=== PATIENT | female | born 1975 | race Caucasian/White ===

== ENCOUNTER 2016-11-03 20:01 | Emergency (ER) ==
[2016-11-03] MEDS ORDERED: ZOFRAN 4 MG/2 ML IVP STA (20:10)
[2016-11-03] MEDS ORDERED: SODIUM CHLORIDE 1,000 ML IV STA (20:10)
[2016-11-03 20:14] VITALS: BP 130/97; TEMP 98.3; BMI 34.7
[2016-11-03 20:21] LABS: BASOPHILS # (AUTO) 0.1 K/uL (0-0.2); BASOPHILS % (AUTO) 0.7 % (0.0-3.0); EOSINOPHILS # (AUTO) 0.3 K/ul (0.0-0.7); EOSINOPHILS % (AUTO) 3.4 % (0.0-7.0); HEMATOCRIT 45.1 % (37.0-47.0); HEMOGLOBIN 16.1 g/dl (12.0-16.0); IMMATURE GRANULOCYTE % (AUTO) 0.1 % (0.0-5.0); LYMPHOCYTES # (AUTO) 2.6 K/uL (0.60-3.4); LYMPHOCYTES % (AUTO) 34.7 (10.0-50.0); MEAN CORPUSCULAR HEMOGLOBIN 34.3 pg (27.0-31.0); MEAN CORPUSCULAR HGB CONC 35.7 (31.8-35.4); MEAN CORPUSCULAR VOLUME 96.2 fl (81.0-99.0); MONOCYTES # (AUTO) 0.6 K/uL (0.4-2.0); MONOCYTES % (AUTO) 8.4 (0-10); NEUTROPHILS # (AUTO) 3.9 K/ul (2.0-6.9); NEUTROPHILS % (AUTO) 52.7; PLATELET COUNT 295 10^3/uL (140-440); RED BLOOD COUNT 4.69 10^6/ul (4.20-5.40); WHITE BLOOD COUNT 7.41 K/ul (4.6-10.2)
[2016-11-03] MEDS ORDERED: SODIUM CHLORIDE 500 ML IV STA (20:29)
[2016-11-03 20:37] LABS: FLU INTERNAL QC INTERNAL QC VALID; RAPID FLU A NEGATIVE (NEGATIVE); RAPID FLU B NEGATIVE (NEGATIVE); SERUM PREGNANCY INTERNAL QC INTERNAL QC VALID
[2016-11-03 20:57] LABS: ALANINE AMINOTRANSFERASE 17 U/L (12-78); ALBUMIN 4.1 g/dL (3.4-5.0); ALBUMIN/GLOBULIN RATIO 1.24; ALKALINE PHOSPHATASE 101 U/L (42-98); AMYLASE 43 U/L (25-115); ANION GAP 11.8; ASPARTATE AMINO TRANSFERASE 16 U/L (15-37); BILIRUBIN,TOTAL 0.34 mg/dL (0.00-1.20); BLOOD UREA NITROGEN 10 mg/dL (7-18); BUN/CREATININE RATIO 12.65; CALCIUM 9.4 mg/dL (8.2-10.2); CARBON DIOXIDE 25 mmol/L (21-32); CHLORIDE 105 mmol/L (98-107); CREATINE KINASE 120 U/L; CREATININE 0.79 mg/dL (0.60-1.30); GLUCOSE 114 mg/dL (70-110); LIPASE 64 U/L (8-78); POTASSIUM 3.8 mmol/L (3.5-5.10); SODIUM 138 mmol/L (136-145); TOTAL PROTEIN 7.4 g/dL (6.4-8.2)
[2016-11-03 21:04] LABS: BILIRUBIN,URINE Negative (NEGATIVE); KETONES,URINE Negative (NEGATIVE); LEUKOCYTE ESTERASE ,URINE Negative (NEGATIVE); NITRITE,URINE Negative (NEGATIVE); PH,URINE 6.5 (5-9); PROTEIN,URINE Negative (NEGATIVE); URINE, BLOOD Negative (NEGATIVE)
[2016-11-03 21:05] LABS: ADD URINE MICROSCOPIC NO
--- NOTE | 2016-11-03 21:19 | CT ---
Exam: CT exam of the abdomen and pelvis without intravenous contrast. Comparison: 02/27/2016. Reason for exam: Vomiting and diarrhea. FINDINGS: Image interpretation is limited by the lack of intravenous contrast administration. Mild atelectasis is seen within the partially imaged lung bases without focal consolidation or pleur al effusion. The gallbladder is been removed. No obvious intrahepatic ductal dilatation. The spleen and pancrea s are grossly unremarkable. There is similar appearing bilateral adrenal gland adenomas. No hydronephrosis, hydroureter, or nephrolithiasis is seen in either kidney. There is no focal small bowel dilatation or transition point. The appendix is unremarkable. No inflammatory changes are seen within the abdominal or pelvic fat. There is a small only fat containing periumbilical hernia. No intra-abdominal free air. No osteoblastic or osteolytic lesions. Impression: 1. No acute inflammatory findings are seen within the abdomen or pelvis. 2. Similar appearing bilateral adrenal adenomas. 3. Mild basilar atelectasis. Report faxed at [phone] hours on 11/03/2016
--- NOTE | 2016-11-03 21:51 | ED.PDOC ---
General ED Provider: Dr. KELLEE SUAREZ-ER Chief Complaint: Nausea/Vomiting Stated Complaint: im thrwing up and having diarrhea Time Seen by Physician: 21:49 Mode of Arrival: Walk-In Information Source: Patient Exam Limitations: No limitations Primary Care Provider: SUPA SANTOS Nursing and Triage Documentation Reviewed and Agree: Yes GI Complaint Exam - Vomiting/Diarrhea Complaint/Exam Onset/Duration: 24hrsw Symptoms Are: Still present Initial Severity: Mild Current Severity: Mild Character of Vomiting: Reports: Non-bilious Character of Diarrhea: Reports: Watery Aggravating: Reports: None Alleviating: Reports: None Associated Signs and Symptoms: Denies: Dizziness, Light-headedness, Melena, Hematemesis, Fever, Abdominal pain, Cramping Recent Positive Test: No Use of Oral Contraceptives: No Use of Depoprovera: No Compliant With Contraceptive Use: No Non-GI Risk Factors: Reports: None Related Surgical History: Reports: None Abdominal Findings: Present: None Kussmaul Respirations Present: No Differential Diagnoses: Dehydration, Viral Gastroenteritis, UTI Review of Systems - Review Of Systems Constitutional: Reports: No symptoms Eyes: Reports: No symptoms Ears, Nose, Mouth, Throat: Reports: No symptoms Respiratory: Reports: No symptoms Cardiac: Reports: No symptoms GI: Reports: Diarrhea, Nausea, Vomiting : Reports: No symptoms Musculoskeletal: Reports: No symptoms Skin: Reports: No symptoms Neurological: Reports: No symptoms Endocrine: Reports: No symptoms Hematologic/Lymphatic: Reports: No symptoms All Other Systems: Reviewed and Negative Past Medical History - Past Medical History Previously Healthy: Yes Endocrine: Reports: None Cardiovascular: Reports: None Respiratory: Reports: None Hematological: Reports: None Gastrointestinal: Reports: PUD, GERD, Pancreatitis Genitourinary: Reports: None Neuro/Psych: Reports: None, Migraine Musculoskeletal: Reports: None Cancer: Reports: None Last Menstrual Period: last month - Surgical History General Surgical History: Reports: Tubal ligation - Family History Family History: Reports: Unknown - Social History Smoking Status: Current every day smoker, Heavy tobacco smoker Hx Substance Use: No Alcohol Screening: None Lives: With family Physical Exam - Physical Exam Appearance: Well-appearing, No pain distress, Well-nourished Eyes: GLENN, EOMI, Conjunctiva clear ENT: Ears normal, Nose normal, Oropharynx normal Neck: Supple Respiratory: Airway patent, Breath sounds clear, Breath sounds equal, Respirations nonlabored Cardiovascular: RRR, Pulses normal, No rub, No murmur GI/: Soft, Nontender, No masses, Bowel sounds normal, No Organomegaly Musculoskeletal: Normal strength, ROM intact, No edema, No calf tenderness Skin: Warm, Dry, Normal color Neurological: Sensation intact, Motor intact, Reflexes intact, Cranial nerves intact, Alert, Oriented Psychiatric: Affect appropriate Interpretation - Radiology Interpretation Radiology Interpretation By: Radiologist Radiology Results: Negative Exam Interpreted: CT Scan - EKG Interpretation Time of EKG #1: 21:51 Rate: Normal Rhythm: Sinus Ectopy: None [place]: NL ST Segment: Normal Interpretation: nsr Critical Care Note - Critical Care Note Total Time (mins): 0 Course - Course Hematology/Chemistry: 11/03/16 20:15 11/03/16 20:15 Orders, Labs, Meds: Lab Review 11/03/16 11/03/16 20:15 20:50 WBC 7.41 RBC 4.69 Hgb 16.1 H Hct 45.1 MCV 96.2 MCH 34.3 H MCHC 35.7 H RDW Coeff of Cleopatra 13.2 Plt Count 295 Immature Gran % (Auto) 0.1 Neut % (Auto) 52.7 Lymph % (Auto) 34.7 Whitfield % (Auto) 8.4 Eos % (Auto) 3.4 Baso % (Auto) 0.7 Immature Gran # (Auto) 0.0 Neut # 3.9 Lymph # 2.6 Whitfield # 0.6 Eos # 0.3 Baso # 0.1 Sodium 138 Potassium 3.8 Chloride 105 Carbon Dioxide 25 Anion Gap 11.8 BUN 10 Creatinine 0.79 Estimated GFR (MDRD) 81.00 BUN/Creatinine Ratio 12.65 Glucose 114 H Calcium 9.4 Total Bilirubin 0.34 AST 16 ALT 17 Alkaline Phosphatase 101 H Total Creatine Kinase 120 CK-MB (CK-2) 2.0 CK-MB (CK-2) % 1.28824 Troponin I < 0.0100 Total Protein 7.4 Albumin 4.1 Globulin 3.3 Albumin/Globulin Ratio 1.24 Amylase 43 Lipase 64 Serum , Qual Negative Urine Color Yellow Urine Clarity Clear Urine pH 6.5 Ur Specific [place] 1.010 Urine Protein Negative Urine Glucose (UA) Negative Urine Ketones Negative Urine Blood Negative Urine Nitrite Negative Urine Bilirubin Negative Urine Urobilinogen 0.2 Ur Leukocyte Esterase Negative Influenza A (Rapid) Negative Influenza B (Rapid) Negative Orders Category Date Time Status EKG-(ED ONLY) Stat CARDIO 11/03/16 20:10 Ordered ED IV/MEDIPORT/POWERPORT .ONCE EMERGENCY 11/03/16 20:10 Active AMYLASE Stat LAB 11/03/16 20:15 Completed CBC W/ AUTO DIFF Stat LAB 11/03/16 20:15 Completed COMPREHENSIVE METABOLIC PANEL Stat LAB 11/03/16 20:15 Completed CREATINE KINASE Stat LAB 11/03/16 20:15 Completed LIPASE Stat LAB 11/03/16 20:15 Completed MOLECULAR GROUP A STREP Stat LAB 11/03/16 20:15 Results RAPID FLU A/B Stat LAB 11/03/16 20:15 Completed SERUM Stat LAB 11/03/16 20:15 Completed STREP SCREEN Stat LAB 11/03/16 20:15 Results TROPONIN I Stat LAB 11/03/16 20:15 Completed URINALYSIS C & S IF INDICATED Stat LAB 11/03/16 20:50 Completed 0.9 % Sodium Chloride [Saline Flush] MEDS 11/03/16 20:10 Ordered 1 syr IVF PRN PRN Ondansetron HCl/Pf [Zofran 4 mg/2 ml] MEDS 11/03/16 20:10 Discontinued 4 mg IVP ONCE STA Sodium Chloride 0.9% [Sodium Chloride] 1,000 ml MEDS 11/03/16 20:10 Discontinued IV BOLUS Sodium Chloride 0.9% [Sodium Chloride] 500 ml MEDS 11/03/16 20:[address] ABDOMEN/PELVIS WO CONTRAST Stat RADS 11/03/16 20:10 Completed Medications Generic Name Dose Route Start Last Admin Trade Name Freq PRN Reason Stop Dose Admin Sodium Chloride 1 syr 11/03/16 20:10 Saline Flush IVF PRN PRN To flush IV Discontinued Medications Generic Name Dose Route Start Last Admin Trade Name Freq PRN Reason Stop Dose Admin Sodium Chloride 1,000 mls @ 1,000 mls/hr 11/03/16 20:10 11/03/16 20:41 Sodium Chloride IV 11/03/16 21:09 1,000 mls/hr BOLUS STA Administration Sodium Chloride 500 mls @ 500 mls/hr 11/03/16 20:29 11/03/16 21:32 Sodium Chloride IV 11/03/16 21:28 500 mls/hr BOLUS STA Administration Ondansetron HCl 4 mg 11/03/16 20:10 11/03/16 20:41 Zofran 4 Mg/2 Ml IVP 11/03/16 20:11 4 mg ONCE STA Administration Vital Signs: Temp Pulse Resp BP Pulse Ox 11/03/16 20:02 98.3 F 89 18 130/97 H 98 Departure - Departure Time of Disposition: 21:52 Disposition: HOME SELF-CARE Discharge Problem: Enteritis Instructions: Enteritis (ED) Condition: Good Pt referred to PMD for follow-up: Yes Additional Instructions: clear liquids and advance --avoid dairy for 3 dyas Allergies/Adverse Reactions: Allergies No Known Drug Allergies Adverse Reaction (Verified 11/03/16 20:11) Home Medications: Ambulatory Orders Esomeprazole Magnesium [Nexium 24Hr] 20 mg PO BID 03/21/16 Disposition Discussed With: Patient
[2016-11-03] MEDS ORDERED: PHENERGAN 25 MG/ML VIAL 25 MG in SODIUM CHLORIDE 50 ML IV STA (22:05)
[2016-11-03] MEDS ORDERED: PHENERGAN 25 MG/ML VIAL ONE (22:08)
== END 2016-11-03 23:04 | disposition home or self-care (01) ==
LOC: ED 20:01
DX: K52.9 Noninfective gastroenteritis and colitis, unspecified (principal); F17.210 Nicotine dependence, cigarettes, uncomplicated
CPT/HCPCS: 36415; 80053; 81001; 82150; 82550; 82553; 83690; 84484; 84703; 85025; 87651; 87804; 87880; 93005; 93010; 96361; 96365; 96375; 99283

== ENCOUNTER 2017-02-09 17:02 | Outpatient (CLI) ==
[2017-02-09 17:30] LABS: H. PYLORI ANTIBODY NEGATIVE (NEGATIVE); H.PYLORI INTERNAL QC INTERNAL QC VALID
== END 2017-02-09 17:03 | disposition home or self-care (01) ==
LOC: LAB 17:02
PROVIDERS: ATTEND Nurse Practitioner Family
DX: R10.9 Unspecified abdominal pain (principal); R14.2 Eructation
CPT/HCPCS: 36415; 86677

== ENCOUNTER 2017-03-25 06:32 | Outpatient (CLI) ==
--- NOTE | 2017-03-26 09:08 | ECHO2D ---
Date of Exam: 03/25/17 Ordering Physician: [facility]--SUPA SANTOS Reason for Echo: HEART MURMUR Room #: OP M-Mode Normal Adult Results LV Dimensions Normal Adult Results AoV Opening excursions >1.6 >1.6 LVEDD-base- 3.5-5.8 4.0 Ao root dimensions 2.0-3.7 3.3 LVESD-base- 3.1-4.6 L. Atrium dimensions 1.9-3.8 4.0 Post. Wall thickness 0.8-1.1 1.0 IV septum (thickness) 0.7-1.2 0.9 Post. Wall excursion 0.72-1.3 NORMAL Septal motion NORMAL Systolic motion R. Ventricular cavity 1.5-2.0 NORMAL LVEF 60% 75% Paradoxical septal wall motion NORMAL 2-D : 2-D M Mode Echocardiogram was performed using apical four chamber and left parasternal long and short axis views. Mitral, tricuspid and aortic valves appear to be normal. Contractility of the left ventricle seems to be normal, so is the cavity size. Left atrial cavity size and aortic root appear to be normal. There is no pericardial effusion. There is no thrombus noted in the left ventricular or left aortic cavity. No mitral valve prolapse noted. M-MODE: MV: NORMAL AV: NORMAL TV: NORMAL PV: CHAMBER SIZE: NORMAL WALL MOTION: NORMAL PERICARDIUM: NORMAL INTERPRETATION: 1. NORMAL 2 "D" "M" MODE ECHO MTDD
== END 2017-03-25 06:33 | disposition home or self-care (01) ==
LOC: CAR 06:32
PROVIDERS: ATTEND Nurse Practitioner Family
DX: R01.1 Cardiac murmur, unspecified (principal)

== ENCOUNTER 2017-05-22 16:00 | Outpatient (CLI) ==
[2017-05-22 16:43] LABS: FLU INTERNAL QC INTERNAL QC VALID; RAPID FLU A POSITIVE (NEGATIVE); RAPID FLU B NEGATIVE (NEGATIVE)
== END 2017-05-22 16:01 | disposition home or self-care (01) ==
LOC: LAB 16:00
PROVIDERS: ATTEND Nurse Practitioner Family
DX: J02.9 Acute pharyngitis, unspecified (principal); R09.89 Other specified symptoms and signs involving the circulatory and respiratory systems
CPT/HCPCS: 87651; 87804; 87880

== ENCOUNTER 2018-03-29 14:52 | Outpatient (CLI) | END 2018-03-29 14:53 | disposition home or self-care (01) | LOC: LAB 14:52 | PROVIDERS: ATTEND Family Medicine | DX: R35.0 Frequency of micturition (principal) | CPT/HCPCS: 36415; 80053; 81001; 83036; 87086 ==

== ENCOUNTER 2018-04-13 06:09 | Outpatient (CLI) | END 2018-04-13 06:10 | disposition home or self-care (01) | LOC: LAB 06:09 | PROVIDERS: ATTEND Family Medicine | DX: R19.7 Diarrhea, unspecified (principal) | CPT/HCPCS: 36415 ==

== ENCOUNTER 2018-09-03 08:01 | Outpatient (CLI) ==
--- NOTE | 2018-09-03 10:42 | DI ---
EXAM: Double contrast upper GI History: GERD. Technique: Patient was given gas crystals. Patient was then given oral barium and multiple spot sabiha ms of the esophagus, stomach and duodenum were obtained in various projections. Findings: The course of the esophagus is within normal limits. There is mild mucosal irregularity within the m id esophagus with mild contour deformity. No extravasation of contrast material. Gastroesophageal j unction is patent. No hiatal hernia. No obvious gastric polyps or ulcerations identified. There is slow gastric emptying. The course and caliber of the duodenum is within normal limits. Esophageal spasm was seen. Gastroesophageal reflux was noted. Impression: 1. Mild mucosal irregularity within the mid esophagus with mild contour deformity. Recommend furthe r evaluation with upper endoscopy. 2. Esophageal spasm. 3. Gastroesophageal reflux. 4. Slow gastric emptying
== END 2018-09-03 08:02 | disposition home or self-care (01) ==
LOC: RAD 08:01
PROVIDERS: ATTEND Family Medicine
DX: K21.9 Gastro-esophageal reflux disease without esophagitis (principal)

== ENCOUNTER 2018-09-21 14:57 | Outpatient (CLI) ==
--- NOTE | 2018-09-21 15:34 | DI ---
EXAM: Two views of the chest. History: Exposure to tuberculosis. Comparison: Chest radiograph 10/01/2014 Findings: Heart size is within normal limits. Small nodular density projecting over the left heart border. No appreciable pleural fluid and no pneumothorax. No acute osseous abnormalities. Impression: A small nodular density projecting over the left heart border is indeterminate. Recomme nd further evaluation with contrast enhanced chest CT.
== END 2018-09-21 14:58 | disposition home or self-care (01) ==
LOC: RAD 14:57
PROVIDERS: ATTEND Family Medicine
DX: Z20.1 Contact with and (suspected) exposure to tuberculosis (principal)

== ENCOUNTER 2018-09-22 12:04 | Outpatient (CLI) ==
--- NOTE | 2018-09-22 13:54 | CT ---
EXAM: CT of the chest without contrast History: Lung nodule seen on recent chest radiograph Comparison: Chest radiograph 09/21/2018, CT abdomen pelvis 11/03/2016 Technique: Multiplanar CT images through the thorax were obtained without the administration of IV c ontrast Findings: Heart size is normal. No pericardial effusion. No thoracic aortic aneurysm. No axillary lymphadenopathy. No pathologically enlarged mediastinal or hilar lymph nodes. No lung masses or nicholas ng nodules. No consolidation. No pleural fluid and no pneumothorax. The previous described nodule on the recent chest radiograph correlates to a prominent vascular structure. Within the visualized upper abdomen, status post cholecystectomy. No acute osseous abnormalities. Impression: 1. No acute intrathoracic process. 2. No lung nodules
== END 2018-09-22 12:05 | disposition home or self-care (01) ==
LOC: RAD 12:04
PROVIDERS: ATTEND Family Medicine
DX: R93.89 Abnormal findings on diagnostic imaging of other specified body structures (principal)